=== PATIENT | female | born 1970 ===

== ENCOUNTER 2017-04-28 15:43 | Emergency (ER) | payer MEDICAID, OTHER ==
[2017-04-28 16:17] VITALS: BP 136/89; PULSE 102; RESP 16; TEMP 99.2; O2SAT 100
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
== END 2017-04-28 17:58 | disposition home or self-care (01) ==
LOC: H.ER 15:43
DX: S93.401A Sprain of unspecified ligament of right ankle, initial encounter (principal); S83.91XA Sprain of unspecified site of right knee, initial encounter; S63.501A Unspecified sprain of right wrist, initial encounter; V43.62XA Car passenger injured in collision with other type car in traffic accident, initial encounter; Y92.410 Unspecified street and highway as the place of occurrence of the external cause